=== PATIENT | female | born 1985 | race Caucasian/White ===

== ENCOUNTER 2017-10-01 17:53 | Emergency (ER) | payer MEDICAID ==
[~2017-10-01] VITALS: Ht 157.5 cm; Wt 73.9 kg
[2017-10-01 17:55] VITALS: Ht 157.5 cm; Wt 73.9 kg
[2017-10-01 18:34] LABS: BASOPHIL % 0.8 % (0-2); PLATELET COUNT 218 x10^3mcL (130-400)
[2017-10-01 19:04] LABS: CALCIUM 8.4 mg/dL (8.5-10.1); CARBON DIOXIDE 23.7 mmol/L (21-32); CHLORIDE SERUM 104 mmol/L (98-107); CREATININE SERUM 0.5 mg/dL (0.6-1.0); GFR1 > 60 mL/min; GLUCOSE SERUM 90 mg/dL (74-106); POTASSIUM SERUM 4.1 mmol/L (3.5-5.1); SODIUM SERUM 140 mmol/L (136-145)
[2017-10-01 19:08] LABS: ALBUMIN 3.9 g/dL (3.4-5.0); ALKALINE PHOSPHATASE 98 U/L (46-116); ALT/SGPT 33 U/L (14-59); AST/SGOT 22 U/L (15-37); BILIRUBIN TOTAL 0.3 mg/dL (0.20-1.00); CHOLESTEROL 176 mg/dL (<200); TOTAL PROTEIN, SERUM 7.7 g/dL (6.4-8.2)
[2017-10-01 20:16] VITALS: BP 114/73
== END 2017-10-01 20:16 | disposition home or self-care (01) ==
LOC: ED 17:53
PROVIDERS: Specialist
DX: M75.31 Calcific tendinitis of right shoulder (principal)
CPT/HCPCS: J1885